=== PATIENT | male | born 1965 | race Caucasian/White ===

== ENCOUNTER 2018-04-07 08:27 | Day surgery (SDC) | payer OTHER ==
[2018-04-07] MEDS ORDERED: LIDOCAINE 2% MDV (20MG/ML) 20ML VIAL IV ONE (08:28)
[2018-04-07] MEDS ORDERED: PROPOFOL 10 MG/ML VIAL IV ONE (08:28)
--- NOTE | 2018-04-10 08:20 | Operative Note ---
DATE OF SURGERY: 04/07/2018 SURGEON: Regis Pathak MD OPERATION: COLONOSCOPY. INDICATIONS: This is a 52-year-old male with average risk for colorectal cancer who presented for screening colonoscopy. POSTOPERATIVE DIAGNOSES: 1. A 3 mm rectal polyp that was removed by cold biopsy forceps. 2. Otherwise normal colon and terminal ileal mucosa. ANESTHESIA: Sedation is per Anesthesia. Pulse oximetry was monitored throughout the procedure to maintain O2 saturation of 90% or greater. Supplemental oxygen was administered via nasal cannula. Cardiac and vital signs were monitored throughout the duration of the procedure, and they were stable. The procedure of colonoscopy and risks and alternatives of the procedure, including the risk of bleeding and perforation, among others, were explained to the patient who voiced understanding and agreed to have the procedure done. Physical examination was performed, and the patient was found stable for sedation. PROCEDURE: The patient was placed in the left lateral position. Sedation was initiated. A digital rectal exam was performed and showed some mild external hemorrhoids with no palpable rectal masses. An Olympus PCF-180AL colonoscope was then inserted into the rectum under direct visualization. It was advanced to the cecum without difficulty. The ileocecal valve and appendiceal orifice were identified and photographed. The colonic mucosa was carefully examined upon introduction of the colonoscope. There were no lesions noted. The ileocecal valve was intubated and terminal ileal mucosa was inspected for about 10 cm and it appeared normal. The colonoscope was then withdrawn while carefully examining the colonic mucosal surfaces. No other lesions were noted. In the rectum, however, a 3 mm sessile polyp was noted and removed by cold biopsy forceps. The colonoscope was then withdrawn and the procedure was terminated. The patient tolerated the procedure well without any immediate complications. The patient remained with stable vital signs and was transferred to the recovery room. RECOMMENDATIONS: 1. The patient should be on a high-fiber diet. 2. The patient is to have a repeat colonoscopy for screening in about 5 or 10 years depending on the histology of the polyps. Thank you for allowing me to participate in the care of your patient. CC: DO FRANKI Moon
== END 2018-04-07 10:23 | disposition home or self-care (01) ==
LOC: HOP 08:27
PROVIDERS: ATTEND Internal Medicine Gastroenterology
DX: Z12.11 Encounter for screening for malignant neoplasm of colon (principal); K62.1 Rectal polyp; I10 Essential (primary) hypertension; E78.00 Pure hypercholesterolemia, unspecified

== ENCOUNTER 2018-12-12 06:59 | Day surgery (SDC) | payer OTHER ==
--- NOTE | 2018-12-08 10:03 | Rehab Joint Replacement Pre-Op ---
Rehab Joint Replacement Pre-Op - Pre-Op Visit Reviewed Items Scheduled for Post Op Visit: Yes Scheduled Post Op Visit Date: 12/12/18 Benjamin Hose/Garment Measurement TKR - Knee High: Yes (Ankle circumference: 8 1/2", Calf circumference: 12 3/4", Thigh circumference: 18 3/4", Leg length-thigh high: 28 1/2", Knee high: 18 1/2". According to these measurements the correct size stocking: Medium-Short) Benjamin Hose/Garment Measure THR - Thigh High: N/A Exercise Reviewed: Yes Stair Climbing: Yes Cane/Walker/Crutch Training: Yes Vend Equipment - Cane or Walker and OT Kit: N/A List of Venders in the Area: Yes Shower Chair Transfers: Yes Car Transfers: Yes Bed Transfers: Yes Medical History Forms Issued: No Functional Scale Forms Issued: No Pre-Operative Intake Form - Scheduled Procedure Type of Surgical Procedure: Total Knee - Left - Patient Living Situation Current Living Situation: Other (Daughter) Current Housing Situation: Two Story Home Will patient be using both levels immediately after surgery: No - Entrance Detail Current Housing Entrance: Steps Number of Steps: 0 - Bathroom Detail Bathroom Setup: Walk-In Shower (has hand held shower head) Toilet Setup: Standard Height Toilet, Grab Bars Not Present - Post-Op Home Assistance Pt has meals following surgery?: Yes Pt has transportation following surgery?: Yes - Work Status Current Work Status: Currently Employed - FT Employer: [employer] Return to Work Date: 03/19/19 - Additional Detail Patient Returning Home In: Car Patient is scheduled for the following: Outpatient PT (Here)
[~2018-12-12 06:59] MED LIST: CEFAZOLIN 2 Gram 2 GM/50 ML BAG IVPB ONE; FAMOTIDINE 20MG TABLET PO ONE; MECLIZINE 25 MG TABLET PO ONE; METOCLOPRAMIDE 10 MG TABLET PO ONE
[2018-12-12] MEDS ORDERED: LIDOCAINE 2% MDV (20MG/ML) 20ML VIAL IV ONE (07:00)
[2018-12-12] MEDS ORDERED: MIDAZOLAM HCL 2MG/2ML VIAL IV ONE (07:00)
[2018-12-12] MEDS ORDERED: PROPOFOL 10 MG/ML VIAL IV ONE (07:00)
[2018-12-12] MEDS ORDERED: ROPIVACAINE HCL (NAROPIN) /PF 5MG/ML 20ML VIAL IV ONE (07:00)
[2018-12-12] MEDS ORDERED: DEXAMETHASONE 4 MG/ML 1ML VIAL IVP ONE (07:00)
[2018-12-12] MEDS ORDERED: RINGERS SOLUTION,LACTATED 1,000 ML IV ONE ×2 (07:40→09:40)
[2018-12-12] MEDS ORDERED: TRANEXAMIC ACID 1,000 MG/10 ML ML IVPB ONE (10:10)
[2018-12-12] MEDS: RINGERS SOLUTION,LACTATED 1,000 ML IV SCH (11:10)
[2018-12-12] MEDS ORDERED: ONDANSETRON HCL IV 4 MG/2 ML VIAL IVP PRN (11:30)
[2018-12-12] MEDS ORDERED: ZOLPIDEM TARTRATE 5 MG TABLET PO PRN (11:30)
[2018-12-12] MEDS ORDERED: ACETAMINOPHEN 325 MG TAB PO PRN (11:30)
[2018-12-12] MEDS ORDERED: TRAMADOL HCL 50 MG TABLET PO PRN (11:30)
[2018-12-12] MEDS ORDERED: METOCLOPRAMIDE HCL 10 MG/2 ML VIAL IVP PRN (11:30)
[2018-12-12] MEDS ORDERED: OXYCODONE HCL/APAP 5MG/325MG TABLET PO PRN ×2 (11:30)
[2018-12-12] MEDS ORDERED: HYDROMORPHONE HCL 2 MG/ML VIAL IV PRN (11:30)
[2018-12-12] MEDS ORDERED: SENNOSIDES/DOCUSATE SODIUM UD CAPSULE PO PRN (11:30)
[2018-12-12] MEDS ORDERED: MAGNESIUM HYDROXIDE 30 ML UDC PO PRN (11:30)
--- NOTE | 2018-12-12 12:58 | Operative Note ---
DATE OF SURGERY: 12/12/2018 SURGEON: Marv Strickland D.O. REFERRING PHYSICIAN: Grant Vaz D.O. PREOPERATIVE DIAGNOSIS: OSTEOARTHRITIS OF THE LEFT KNEE. POSTOPERATIVE DIAGNOSIS: OSTEOARTHRITIS OF THE LEFT KNEE. OPERATION: LEFT TOTAL KNEE ARTHROPLASTY. DESCRIPTION: This is a 53-year-old male who was taken to the Operating Room, placed in the supine position on the operating room table after spinal anesthesia was induced by the Department of Anesthesia. The left lower extremity was then elevated and it was prepped with Hibiclens and draped in the usual sterile fashion. It was exsanguinated and the tourniquet was inflated to 300 mmHg. All scrub personnel wore personal isolation suits. An anterior longitudinal midline incision was made followed by a medial parapatellar arthrotomy incision and intracondylar drill holes were made for the intramedullary alignment denisha and the sizing jig was affixed and a size 67 was seen to be the appropriate size in the medial lateral direction, but too narrow in the anterior posterior dimension therefore the pin sites were moved 2 mm anteriorly and the cutting block was placed in 3 degrees of external rotation and appropriate cuts were made. Wafers of bone were removed, we directed our attention to the intercondylar notch to remove osteophytes. We then directed our attention to the proximal tibia and an extramedullary alignment guided was used to cut the proximal tibia referencing a 10 mm cut off the lateral tibial plateau and once the rotation had been set, a 3 degree posterior slope cut was made in the proximal tibia. A wafer of bone was removed and remnants of the menisci and osteophytes were removed from the posterior aspect of the joint. The tibial size was size 75, a stem punch was used and the wound was copiously irrigated with lactated Ringer's solution. The patella was then measured, cut and restored to anatomic height with a 37 x 10 mm patella, but trial components were inserted first with a 10, 11, and 12 mm bearings, the 11 was actually seen to be the most appropriate given full range of motion with good stability of the knee. The wound was copiously irrigated with pulse lavage lactated Ringer's solution. 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 anteriorly interfering with the anterior aspect of the tibial component, therefore, we used a rongeur to snip it back so that it would not interfere or impinge upon the tibial component. All bony surfaces were dried and excess cement was removed after insertion of each component. Initially we placed the tibial baseplate, the tibial baseplate was cemented followed by the insertion of the tibial bearing, femoral component and patella. Once the cement had hardened on all components, the knee was again taken through range of motion with excellent stability of the components being identified. A drain was placed through a separate stab incision, the wound was copiously irrigated again with lactated Ringer's solution, the arthrotomy incision was closed with #2 Vicryl, the subcutaneous tissue was closed with 0 Vicryl, and the skin was stapled. Sterile dressings were applied with a Polar Care. The patient was taken to the Recovery Room in satisfactory condition. GROSS PATHOLOGY: This patient demonstrated marked osteoarthritis of the medial compartment, moderate degenerative changes of the patellofemoral joint were also present, Grade 2 changes were noted in the lateral compartment in both the femur and tibial component. Final components inserted were a [employer] Vanguard size 67.5 cruciate retaining femur, a 75 tibial baseplate and 11 mm anterior stabilized E1 bearing and a 37 x 10 mm patella was used. JOB NUMBER: [id number] MTDD
[2018-12-12] MEDS ORDERED: TRANEXAMIC ACID 1,000 MG in 0.9 % SODIUM CHLORIDE 100ML 100 ML IVPB ONE (13:00)
[2018-12-12] MEDS: HYDROCODONE/APAP 5/325MG TABLET PO PRN ×3 (13:38→19:43)
--- NOTE | 2018-12-12 14:28 | Rehab Evaluation ---
Patient Information - Patient Information Diagnosis: L knee OA Ordered Treatment: PT Evaluate and Treat Status: Initial Evaluation Surgery: Yes (L TKA) Date of Surgery: 12/12/18 Past Medical/Surgical Hx: PAST MEDICAL/SURGICAL HISTORY Past Surgical History knee arthroscopies x- 2 rt, Lt. PMH - Respiratory Hx Respiratory Disorders No PMH - Cardiovascular Hx Cardiovascular Disorders Yes Hx Hypertension Yes: meds good control Exercise Tolerance Good PMH - Neuro Hx Neurological Disorders No PMH - GI Hx Gastrointestinal Disorders Yes Hx Abdominal Pain Yes: somewhat in right groin-job involves heavy lifting PMH - Hx Genitourinary Disorders Yes Hx Prostate Problems Yes: psa checked q 6 months-gets infection "in prostate" PMH - Endocrine Hx Endocrine Disorders No PMH - Musculoskeletal Hx Musculoskeletal Disorders No Hx Arthritis Yes: KNEES PMH - Psych Hx Psychiatric Problems No PMH - Hematology/Oncology Hx Hematology/Oncology No Disorders Hx Bruising Yes: BRUISES EASILY Premorbid Status: Detail (The patient was independent with all mobility prior to surgery.) Social History: Detail (The patient lives in a 2 story house with daughter and his parents with no stairs a the enterance, hower 3 steps without a railing are present to go to floor with bathroom. The bathroom is equipped with: walk in shower, shower bench, hand held shower and a standard toilet. No grab bars are present in the bathroom. The pt. has a front wheeled walker .) Precautions: [place], Fall, Other (WBAT on the L LE) - Time With Patient Total Time Spent With Patient (Min): 30 Treatment Procedures: Detail (Initial Evaluation, low complexity.) Subjective Information - Subjective Information Per Patient (The patient had complaints of L knee pressure but no pain.) Objective Data - Mental Status Patient Orientation: Oriented x3 - Visual Perception Appears within normal limits for therapeutic activities - ROM Not within normal limits (The patient's L knee AROM was limited as to be expected following surgery. All other LE AROM was WNL.) - Strength/Tone Not within normal limits (The patient's strength was not tested s/p surgery however was WFL.) - Bed Mobility Independent (The patient was independent with supine to and from sit transfer.) - Transfers Independent (The patient was independent with sit to and from stand transfer.) - Balance Balance Sitting: Good Balance Standing: Good - Sensation Intact - Gait Detail (The patient ambulated with front wheeled walker a distance of 100 feet x 1 WBAT on the L LE with supervision for safety only.) Therapy Assessment - Therapy Assessment Detail (The pt. was independent with bed mobility and transfers and required supervision for safety only with ambulation. The patient is anticipated to reach inpt. PT goals in one to two sessions.) Problem List - Problem List Physical Therapy Problem List: Detail (Decreased L knee AROM and strength) Goals - Goals Physical Therapy Goals: 1) The pt. will be independent with TKA HEP. 2) The pt. will ambulate on stairs with supervision for safety and using proper technique. Prognosis - Prognosis Good (PT for 1-2 sessions for gait training on stairs and instruction in HEP.)
[2018-12-12] MEDS: TRAMADOL HCL 50 MG TABLET PO PRN (16:35)
[2018-12-12] MEDS ORDERED: FONDAPARINUX 2.5 MG/0.5 ML SYR SQ SCH (18:00)
[2018-12-12] MEDS: CEFAZOLIN 2 Gram 2 GM/50 ML BAG IVPB SCH (18:08)
[2018-12-12] MEDS ORDERED: METOPROLOL SUCCINATE 100MG PO SCH (18:30)
[2018-12-12] MEDS ORDERED: LOSARTAN 50MG PO SCH (18:30)
[2018-12-12] MEDS ORDERED: ATORVASTATIN 40MG PO SCH (18:30)
[2018-12-13] MEDS: HYDROCODONE/APAP 5/325MG TABLET PO PRN ×3 (01:29→12:30)
[2018-12-13] MEDS: CEFAZOLIN 2 Gram 2 GM/50 ML BAG IVPB SCH ×2 (01:30→09:12)
[2018-12-13] MEDS: RINGERS SOLUTION,LACTATED 1,000 ML IV SCH (05:52)
[2018-12-13] MEDS: TRAMADOL HCL 50 MG TABLET PO PRN (09:13)
--- NOTE | 2018-12-13 11:09 | Rehab Evaluation ---
Patient Information - Patient Information Diagnosis: L knee OA Ordered Treatment: OT Evaluate and Treat Status: Initial Evaluation Surgery: Yes (L TKA) Date of Surgery: 12/12/18 Past Medical/Surgical Hx: PAST MEDICAL/SURGICAL HISTORY Past Surgical History knee arthroscopies x- 2 rt, Lt. PMH - Respiratory Hx Respiratory Disorders No PMH - Cardiovascular Hx Cardiovascular Disorders Yes Hx Hypertension Yes: meds good control Exercise Tolerance Good PMH - Neuro Hx Neurological Disorders No PMH - GI Hx Gastrointestinal Disorders Yes Hx Abdominal Pain Yes: somewhat in right groin-job involves heavy lifting PMH - Hx Genitourinary Disorders Yes Hx Prostate Problems Yes: psa checked q 6 months-gets infection "in prostate" PMH - Endocrine Hx Endocrine Disorders No PMH - Musculoskeletal Hx Musculoskeletal Disorders No Hx Arthritis Yes: KNEES PMH - Psych Hx Psychiatric Problems No PMH - Hematology/Oncology Hx Hematology/Oncology No Disorders Hx Bruising Yes: BRUISES EASILY Premorbid Status: Detail (The patient was independent with all mobility prior to surgery. He was responsible for yard work and cutting wood, his mom was responsible for all home mgmt, meal prep and laundry tasks.) Social History: Detail (The patient lives in a 2 story house with his daughter and his parents with no stairs at the entrance, however 3 steps without a railing are present to go to floor with a bathroom. The bathroom is equipped with: walk in shower, shower bench, hand held shower and a standard toilet. No grab bars are present in the bathroom. The pt. has a front wheeled walker .) Precautions: [place], Fall, Other (WBAT on the L LE) - Time With Patient Total Time Spent With Patient (Min): 35 Treatment Procedures: Detail (OT eval low complexity) Subjective Information - Subjective Information Per Patient Objective Data - Pain Pain Present: Yes (05/24) - Mental Status Patient Orientation: Oriented x3 - Visual Perception Appears within normal limits for therapeutic activities - ROM Within normal limits (Henrry UE AROM WNL) - Strength/Tone Within normal limits (Henrry UE strength WNL) - Coordination Appears within normal limits for therapeutic activities - Bed Mobility Independent (Ind with supine to sit) - Transfers Independent (Ind with sit to stand) - Balance Balance Sitting: Good Balance Standing: Good - Sensation Intact - Gait Detail (Pt ambulating in room with 2 wheeled walker and SBA) - ADL's/IADL's Detail (Pt educated and able to demonstrate learning of modified LE dressing techniques including donning hospital pants. He required assist with slipper socks and slip on slippers due to increased pain and he reports someone will always be with him to assist if needed. Reviewed shower safety and modifications, pt verbalized understanding.) Therapy Assessment - Therapy Assessment Detail (Pt Ind with modified LE dressing techniques or will have assist with activities he had difficulty with.) Problem List - Problem List Physical Therapy Problem List: Detail (Decreased L knee AROM and strength) Occupational Therapy Problem List: Detail (No current IP OT problems identified.) Goals - Goals Physical Therapy Goals: 1) The pt. will be independent with TKA HEP. 2) The pt. will ambulate on stairs with supervision for safety and using proper technique. Occupational Therapy Goals: No current IP OT goals identified. Prognosis - Prognosis Good Plan - Plan Occupational Therapy Plan: No further IP OT recommended. Thank you for this referral.
--- NOTE | 2018-12-13 12:17 | Physical Therapy Tx Note ---
Physical Therapy Tx Note - Treatment Note Tolerated: Fair Total Time Spent With Patient: 25 Physical Therapy Tx Note: Detail (The patient had complaints of L knee pain today. The patient ambulated with front wheeled walker a distance of 250 feet x 1, following WBAT precautions independently. The patient ambulated on stairs with use of folded walker and one railing with supervision for safety and use of one railing. The patient was returned to room via wheelchair. The patient's HEP was reviewed including heel slides, SLR, ankle pumps, quad sets, gluteal sets and hamstring sets. The patient was left in bed with call light within reach and ice .) Physical Therapy Problem List: Detail (Decreased L knee AROM and strength) Physical Therapy Goals: 1) The pt. will be independent with TKA HEP (Goal Met). 2) The pt. will ambulate on stairs with supervision for safety and using proper technique. (Goal Met) Physical Therapy Plan: Patient is discharged from PT and is to continue with outpt. PT.
--- NOTE | 2018-12-15 13:10 | Discharge Summary ---
DATE OF ADMISSION: 12/12/2018 DATE OF DISCHARGE: 12/13/2018 ADMITTING DIAGNOSIS: Osteoarthritis of the left knee. DISCHARGE DIAGNOSIS: Osteoarthritis of the left knee. OPERATIVE PROCEDURE: Left total knee arthroplasty. DESCRIPTION: This 53-year-old male was admitted to the hospital for total knee arthroplasty and tolerated the operative procedure well. The patient's pain was controlled with oral [place]. He cleared physical therapy. He demonstrated no evidence of complication following the surgery, no evidence of DVT. Soft calf. No shortness of breath or chest pain. He was discharged on 12/13/2018 with instructions to wear his BOLA hose during the day and remove them at night. He will have outpatient physical therapy and he was given a prescription for Pres[place] 5/325, #40, to take 1 q.4 h. p.r.n. for pain. He was to take aspirin 325 mg daily. Routine wound care instructions were given. He will follow up in the clinic in 2 weeks. Should he have any problems prior to being seen, he was instructed to call my office. FRANKI
== END 2018-12-13 16:15 | disposition home health service (06) ==
LOC: SUR 06:59 → MEDSURG 11:29 → SUR 12-13 16:15
PROVIDERS: ATTEND Orthopaedic Surgery
DX: M17.12 Unilateral primary osteoarthritis, left knee (principal); I10 Essential (primary) hypertension; E78.00 Pure hypercholesterolemia, unspecified
CPT/HCPCS: 27447; 01402; 64447; J0690 ×2; J1652; J3490; J2795; 76942; J7120